=== PATIENT | female | born 1955 | race Caucasian/White ===

== ENCOUNTER 2018-02-03 15:39 | Emergency (ER) | payer OTHER ==
[~2018-02-03] VITALS: Ht 149.9 cm; Wt 69.8 kg
[2018-02-03 15:46] VITALS: Ht 149.9 cm; Wt 69.8 kg
[2018-02-03 16:43] VITALS: BP 144/100
== END 2018-02-03 16:43 | disposition home or self-care (01) ==
LOC: ED 15:39
DX: M79.644 Pain in right finger(s) (principal); I10 Essential (primary) hypertension; E78.00 Pure hypercholesterolemia, unspecified; G71.19 Other specified myotonic disorders; G71.0 Muscular dystrophy; Z78.0 Asymptomatic menopausal state

== ENCOUNTER 2018-11-30 09:46 | Emergency (ER) | payer OTHER ==
[~2018-11-30] VITALS: Ht 149.9 cm; Wt 69.9 kg
[2018-11-30 10:00] VITALS: Ht 149.9 cm; Wt 69.9 kg
[2018-11-30 10:56] LABS: BASOPHIL % 0.1 % (0-2); PLATELET COUNT 179 x10^3mcL (130-400); RED CELL DISTRIBUTION WIDTH 13.1 % (11.5-14.5)
[2018-11-30 11:01] LABS: CALCIUM 8.3 mg/dL (8.5-10.1); CARBON DIOXIDE 24.4 mmol/L (21-32); CHLORIDE SERUM 103 mmol/L (98-107); CREATININE SERUM 0.6 mg/dL (0.6-1.0); GFR1 > 60 mL/min; GLUCOSE SERUM 161 mg/dL (74-106); POTASSIUM SERUM 3.6 mmol/L (3.5-5.1); SODIUM SERUM 139 mmol/L (136-145)
[2018-11-30 11:05] LABS: ALBUMIN 3.5 g/dL (3.4-5.0); ALKALINE PHOSPHATASE 76 U/L (46-116); ALT/SGPT 30 U/L (14-59); AST/SGOT 21 U/L (15-37); BILIRUBIN TOTAL 1.4 mg/dL (0.20-1.00)
[2018-11-30 11:14] LABS: microscopic required? NO
[2018-11-30 11:35] LABS: UA SPECIFIC GRAVITY 1.025 (1.005-1.035); urine erythrocyte NEGATIVE (NEGATIVE)
[2018-11-30 11:51] VITALS: BP 145/67
== END 2018-11-30 12:33 | disposition home or self-care (01) ==
LOC: ED 09:46
PROVIDERS: Emergency Medicine
DX: L03.211 Cellulitis of face (principal); E78.00 Pure hypercholesterolemia, unspecified; I10 Essential (primary) hypertension; E11.9 Type 2 diabetes mellitus without complications; Z90.49 Acquired absence of other specified parts of digestive tract
CPT/HCPCS: J0696; J7030

== ENCOUNTER 2019-04-13 18:28 | Emergency (ER) | payer OTHER ==
[~2019-04-13] VITALS: Ht 154.9 cm; Wt 68.5 kg
[2019-04-13 19:16] VITALS: Ht 154.9 cm; Wt 68.5 kg
[2019-04-13 20:21] LABS: BASOPHIL % 0.1 % (0-2); PLATELET COUNT 208 x10^3mcL (130-400); RED CELL DISTRIBUTION WIDTH 13.5 % (11.5-14.5)
[2019-04-13 20:42] LABS: CALCIUM 8.6 mg/dL (8.5-10.1); CARBON DIOXIDE 20.9 mmol/L (21-32); CHLORIDE SERUM 107 mmol/L (98-107); CREATININE SERUM 0.7 mg/dL (0.6-1.0); GFR1 > 60 mL/min; GLUCOSE SERUM 140 mg/dL (74-106); POTASSIUM SERUM 3.7 mmol/L (3.5-5.1); SODIUM SERUM 142 mmol/L (136-145)
[2019-04-13 20:47] LABS: ALBUMIN 3.9 g/dL (3.4-5.0); ALKALINE PHOSPHATASE 81 U/L (46-116); ALT/SGPT 38 U/L (14-59); AST/SGOT 27 U/L (15-37); BILIRUBIN TOTAL 1.5 mg/dL (0.20-1.00); LIPASE 62 IU/L (73-393); TOTAL PROTEIN, SERUM 7.4 g/dL (6.4-8.2)
[2019-04-14 00:20] VITALS: BP 150/65
== END 2019-04-14 00:20 | disposition home or self-care (01) ==
LOC: ED 18:28
PROVIDERS: Emergency Medicine
DX: E86.0 Dehydration (principal); R19.7 Diarrhea, unspecified; R51 Headache; R10.9 Unspecified abdominal pain; I10 Essential (primary) hypertension; E11.9 Type 2 diabetes mellitus without complications; E78.00 Pure hypercholesterolemia, unspecified; Z90.49 Acquired absence of other specified parts of digestive tract; Z98.890 Other specified postprocedural states
CPT/HCPCS: 87046; 87046-59; J2405; J7030

== ENCOUNTER 2020-03-17 23:51 | Emergency (ER) | payer OTHER ==
[~2020-03-17] VITALS: Ht 147.3 cm; Wt 68.5 kg
[2020-03-18 00:47] LABS: BASOPHIL % 0.7 % (0-2); PLATELET COUNT 203 x10^3mcL (130-400); RED CELL DISTRIBUTION WIDTH 13.1 % (11.5-14.5)
[2020-03-18 00:58] LABS: CALCIUM 8.9 mg/dL (8.5-10.1); CARBON DIOXIDE 29.9 mmol/L (21-32); CHLORIDE SERUM 104 mmol/L (98-107); CREATININE SERUM 0.8 mg/dL (0.6-1.0); GFR1 > 60 mL/min; GLUCOSE SERUM 124 mg/dL (74-106); POTASSIUM SERUM 3.4 mmol/L (3.5-5.1); SODIUM SERUM 139 mmol/L (136-145)
[2020-03-18 01:02] LABS: ALBUMIN 3.9 g/dL (3.4-5.0); ALKALINE PHOSPHATASE 65 U/L (46-116); ALT/SGPT 44 U/L (14-59); AST/SGOT 33 U/L (15-37); BILIRUBIN TOTAL 1.2 mg/dL (0.20-1.00); MAGNESIUM 1.9 mg/dL (1.8-2.4); TOTAL PROTEIN, SERUM 7.5 g/dL (6.4-8.2)
[2020-03-18 01:55] VITALS: BP 138/54
== END 2020-03-18 01:55 | disposition home or self-care (01) ==
LOC: ED 23:51
PROVIDERS: Student in an Organized Health Care Education/Training Program
DX: R55 Syncope and collapse (principal); I10 Essential (primary) hypertension; E11.9 Type 2 diabetes mellitus without complications; E78.00 Pure hypercholesterolemia, unspecified; Z90.49 Acquired absence of other specified parts of digestive tract; Z98.890 Other specified postprocedural states
CPT/HCPCS: Q0092